=== PATIENT | male | born 1985 | race Hispanic/Latino ===

== ENCOUNTER 2020-07-30 10:54 | Emergency (ER) | payer OTHER ==
[~2020-07-30 10:54] MED LIST: Iopamidol-370 76% 500 ML 1 ML ONE
[2020-07-30] MEDS ORDERED: Ketorolac Tromethamine 30 MG/ML VIAL ONE (11:40)
[2020-07-30 12:02] LABS: #Basophils 0.1 thou/uL (0.0-0.2); #Lymphocytes 0.4 thou/uL (1.20-3.40); #Monocytes 0.2 thou/uL (0.11-0.59); #Neutrophils 5.2 thou/uL (1.40-6.50); %Eosinophils 0.2 % (0.0-10.0); %Monocytes 3.5 % (0.0-10.0); %Neutrophils 88.4 % (42.0-75.0); Hemoglobin 14.8 g/dL (14.0-18.0); Mean Corpuscular HGB CONC 32.2 g/dL (32.0-36.0); Mean Corpuscular Hemoglobin 28.3 pg (27.0-31.0); Mean Corpuscular Volume 87.9 fL (78.0-98.0); Mean Platelet Volume 8.6 fL (7.4-10.4); Platelet Count 107 thou/uL (130-400); Platelet Morphology Comment Appears Decreased; RBC Distribution Width 11.9 % (11.5-14.5); Red Blood Cell (RBC) Count 5.21 mill/uL (4.70-6.10); White Blood Cell (WBC) Count 5.8 thou/uL (4.8-10.8)
[2020-07-30 12:03] LABS: ALT (SGPT) 38 U/L (8-55); AST (SGOT) 39 U/L (5-34); Albumin 3.9 g/dL (3.5-5.0); Alkaline Phosphatase 60 U/L (40-110); Anion Gap 15 mmol/L (10-20); BUN (Urea Nitrogen) 9 mg/dL (8.9-20.6); Bilirubin, Total 0.5 mg/dL (0.2-1.2); Calc. Creatinine Clearance 0 mL/min (70-130); Carbon Dioxide 21 mmol/L (22-29); Chloride 98 mmol/L (98-107); Glucose 135 mg/dL (70-105); Lipase 45 U/L (8-78); Potassium 4.8 mmol/L (3.5-5.1); Protein, Total 7.9 g/dL (6.0-8.3); Sodium 129 mmol/L (136-145)
== END 2020-07-30 15:08 | disposition home or self-care (01) ==
LOC: ERS 10:54
DX: U07.1 COVID-19 (principal); J12.89 Other viral pneumonia; Z79.899 Other long term (current) drug therapy
CPT/HCPCS: 36415; 71045; 71275; 80053; 83690; 84484; 85025; 85379; 93005; J1885

== ENCOUNTER 2020-07-31 00:55 | Inpatient (IN) | payer OTHER ==
[2020-07-31 01:33] LABS: #Lymphocytes 0.5 thou/uL (1.20-3.40); #Monocytes 0.2 thou/uL (0.11-0.59); #Neutrophils 5.2 thou/uL (1.40-6.50); %Basophils 0.3 % (0.0-1.0); %Lymphocytes 8.4 % (21.0-51.0); %Monocytes 3.8 % (0.0-10.0); %Neutrophils 87.5 % (42.0-75.0); Hemoglobin 13.6 g/dL (14.0-18.0); Mean Corpuscular HGB CONC 33.4 g/dL (32.0-36.0); Mean Corpuscular Hemoglobin 29.4 pg (27.0-31.0); Mean Corpuscular Volume 88.2 fL (78.0-98.0); Mean Platelet Volume 7.9 fL (7.4-10.4); Platelet Count 176 thou/uL (130-400); RBC Distribution Width 11.8 % (11.5-14.5); Red Blood Cell (RBC) Count 4.61 mill/uL (4.70-6.10); White Blood Cell (WBC) Count 5.9 thou/uL (4.8-10.8)
[2020-07-31 01:56] LABS: ALT (SGPT) 33 U/L (8-55); AST (SGOT) 30 U/L (5-34); Albumin 3.6 g/dL (3.5-5.0); Alkaline Phosphatase 58 U/L (40-110); Anion Gap 13 mmol/L (10-20); BUN (Urea Nitrogen) 9 mg/dL (8.9-20.6); Bilirubin, Total 0.4 mg/dL (0.2-1.2); Calc. Creatinine Clearance 0 mL/min (70-130); Carbon Dioxide 23 mmol/L (22-29); Chloride 100 mmol/L (98-107); Globulin 3.3 g/dL (2.4-3.5); Glucose 142 mg/dL (70-105); Potassium 3.7 mmol/L (3.5-5.1); Protein, Total 6.9 g/dL (6.0-8.3); Sodium 132 mmol/L (136-145)
[2020-07-31 03:00] VITALS: BMI 35.6
[2020-07-31] MEDS ORDERED: Ondansetron PF 4 MG/2 ML Vial IVP PRN (06:08)
[2020-07-31] MEDS ORDERED: Acetaminophen 325 MG TAB PO PRN (06:08)
[2020-07-31 07:11] LABS: Troponin I Less than 0.010 ng/mL (< 0.028)
[2020-07-31] MEDS: Famotidine 20 MG TAB PO SCH ×2 (08:21→20:13)
[2020-07-31] MEDS: Enoxaparin Sodium 40 MG/0.4 ML SYRINGE SC SCH (08:21)
[2020-07-31] MEDS: Ascorbic Acid 500 mg Chewable Tablet PO SCH (08:21)
[2020-07-31] MEDS: Zinc Sulfate 220 MG CAP PO SCH (08:21)
[2020-07-31] MEDS ORDERED: Dexamethasone 10 MG/ML VIAL SLOW IVP SCH (09:00)
[2020-07-31] MEDS ORDERED: REMDESIVIR (EUA) 200 MG in Sodium Chloride 0.9% 250 ML 210 ML IV SCH (09:00)
[2020-07-31] MEDS ORDERED: Dexamethasone 4 mg/ml Vial SLOW IVP SCH (09:00)
[2020-07-31] MEDS ORDERED: hydrALAZINE 20 MG/ML VIAL SLOW IVP PRN (09:48)
[2020-07-31] MEDS: Ivermectin 3 MG TAB PO SCH (10:15)
[2020-07-31 10:47] LABS: Troponin I Less than 0.010 ng/mL (< 0.028)
[2020-07-31 11:18] LABS: SARS-CoV-2 NAA Rapid Test DETECTED (NotDetected)
[2020-07-31 14:07] LABS: Troponin I Less than 0.010 ng/mL (< 0.028)
[2020-07-31] MEDS: Melatonin 3 MG TAB PO SCH (20:12)
[2020-07-31] MEDS: Cholecalciferol 1,000 UNITS (25 MCG) TAB PO SCH (20:12)
[2020-07-31] MEDS: Dexamethasone 4 mg/ml Vial SLOW IVP SCH (20:13)
[2020-07-31] MEDS: Colchicine 0.6 MG TAB PO SCH (20:16)
[2020-07-31] MEDS ORDERED: Prevnar 13-Val Conj/PF 0.5 ML SYRINGE IM ONE (21:00)
[2020-08-01 07:41] LABS: Anion Gap 15 mmol/L (10-20); BUN (Urea Nitrogen) 13 mg/dL (8.9-20.6); Calc. Creatinine Clearance 226 mL/min (70-130); Calcium 8.2 mg/dL (7.8-10.44); Carbon Dioxide 25 mmol/L (22-29); Chloride 100 mmol/L (98-107); Glucose 178 mg/dL (70-105); Potassium 4.1 mmol/L (3.5-5.1); Sodium 136 mmol/L (136-145)
[2020-08-01 08:12] LABS: Band 6 % (5-11); Eosinophils 1 % (0-10); Hemoglobin 13.7 g/dL (14.0-18.0); Lymphocytes 12 % (21-51); MDiff Complete? YES; Mean Corpuscular HGB CONC 32.7 g/dL (32.0-36.0); Mean Corpuscular Hemoglobin 29.5 pg (27.0-31.0); Mean Platelet Volume 8.7 fL (7.4-10.4); Monocytes 1 % (0-10); Neutrophil 80 % (42-75); Platelet Count 172 thou/uL (130-400); Platelet Morphology Comment Appears Adequate; RBC Morphology Normal; Red Blood Cell (RBC) Count 4.67 mill/uL (4.70-6.10)
[2020-08-01] MEDS: Zinc Sulfate 220 MG CAP PO SCH (08:29)
[2020-08-01] MEDS: Enoxaparin Sodium 40 MG/0.4 ML SYRINGE SC SCH ×2 (08:29→20:45)
[2020-08-01] MEDS: Famotidine 20 MG TAB PO SCH ×2 (08:29→20:44)
[2020-08-01] MEDS: Ascorbic Acid 500 mg Chewable Tablet PO SCH (08:29)
[2020-08-01] MEDS: Ivermectin 3 MG TAB PO SCH (08:29)
[2020-08-01] MEDS: Colchicine 0.6 MG TAB PO SCH ×2 (08:29→20:46)
[2020-08-01] MEDS: Dexamethasone 4 mg/ml Vial SLOW IVP SCH ×2 (08:33→20:46)
[2020-08-01] MEDS: REMDESIVIR (EUA) 100 MG in Sodium Chloride 0.9% 250 ML 230 ML IV SCH (09:08)
[2020-08-01] MEDS: Cholecalciferol 1,000 UNITS (25 MCG) TAB PO SCH (20:44)
[2020-08-01] MEDS: Melatonin 3 MG TAB PO SCH (20:45)
[2020-08-02 06:37] LABS: #Basophils 0.1 thou/uL (0.0-0.2); #Lymphocytes 0.8 thou/uL (1.20-3.40); #Monocytes 0.6 thou/uL (0.11-0.59); %Basophils 0.8 % (0.0-1.0); %Lymphocytes 8.9 % (21.0-51.0); %Monocytes 7.4 % (0.0-10.0); %Neutrophils 82.9 % (42.0-75.0); Mean Corpuscular HGB CONC 32.6 g/dL (32.0-36.0); Mean Corpuscular Hemoglobin 29.3 pg (27.0-31.0); Mean Corpuscular Volume 89.7 fL (78.0-98.0); Mean Platelet Volume 8.1 fL (7.4-10.4); Platelet Count 236 thou/uL (130-400); RBC Distribution Width 11.8 % (11.5-14.5); Red Blood Cell (RBC) Count 4.78 mill/uL (4.70-6.10); White Blood Cell (WBC) Count 8.5 thou/uL (4.8-10.8)
[2020-08-02 06:58] LABS: Anion Gap 14 mmol/L (10-20); BUN (Urea Nitrogen) 13 mg/dL (8.9-20.6); Calc. Creatinine Clearance 245 mL/min (70-130); Calcium 8.1 mg/dL (7.8-10.44); Carbon Dioxide 25 mmol/L (22-29); Chloride 101 mmol/L (98-107); Glucose 174 mg/dL (70-105); Potassium 4.1 mmol/L (3.5-5.1); Sodium 136 mmol/L (136-145)
[2020-08-02] MEDS: Ascorbic Acid 500 mg Chewable Tablet PO SCH (09:50)
[2020-08-02] MEDS: Famotidine 20 MG TAB PO SCH ×2 (09:50→21:08)
[2020-08-02] MEDS: Dexamethasone 4 mg/ml Vial SLOW IVP SCH ×2 (09:51→21:10)
[2020-08-02] MEDS: Colchicine 0.6 MG TAB PO SCH ×2 (09:51→21:09)
[2020-08-02] MEDS: Zinc Sulfate 220 MG CAP PO SCH (09:52)
[2020-08-02] MEDS: Ivermectin 3 MG TAB PO SCH (09:53)
[2020-08-02] MEDS: REMDESIVIR (EUA) 100 MG in Sodium Chloride 0.9% 250 ML 230 ML IV SCH (09:53)
[2020-08-02] MEDS: Enoxaparin Sodium 40 MG/0.4 ML SYRINGE SC SCH ×2 (10:14→21:08)
[2020-08-02] MEDS: Melatonin 3 MG TAB PO SCH (21:09)
[2020-08-02] MEDS: Cholecalciferol 1,000 UNITS (25 MCG) TAB PO SCH (21:09)
[2020-08-03 07:01] LABS: #Monocytes 0.6 thou/uL (0.11-0.59); #Neutrophils 7.3 thou/uL (1.40-6.50); %Basophils 0.4 % (0.0-1.0); %Lymphocytes 11.6 % (21.0-51.0); %Monocytes 6.6 % (0.0-10.0); %Neutrophils 81.4 % (42.0-75.0); Hemoglobin 13.9 g/dL (14.0-18.0); Mean Corpuscular HGB CONC 33.1 g/dL (32.0-36.0); Mean Corpuscular Hemoglobin 29.2 pg (27.0-31.0); Mean Corpuscular Volume 88.2 fL (78.0-98.0); Mean Platelet Volume 7.7 fL (7.4-10.4); Platelet Count 284 thou/uL (130-400); RBC Distribution Width 11.8 % (11.5-14.5); Red Blood Cell (RBC) Count 4.76 mill/uL (4.70-6.10); White Blood Cell (WBC) Count 8.9 thou/uL (4.8-10.8)
[2020-08-03 07:26] LABS: Anion Gap 11 mmol/L (10-20); BUN (Urea Nitrogen) 12 mg/dL (8.9-20.6); Calc. Creatinine Clearance 242 mL/min (70-130); Calcium 8.3 mg/dL (7.8-10.44); Carbon Dioxide 29 mmol/L (22-29); Chloride 101 mmol/L (98-107); Glucose 151 mg/dL (70-105); Potassium 4.3 mmol/L (3.5-5.1); Sodium 137 mmol/L (136-145)
[2020-08-03] MEDS: Enoxaparin Sodium 40 MG/0.4 ML SYRINGE SC SCH (07:58)
[2020-08-03] MEDS: Ascorbic Acid 500 mg Chewable Tablet PO SCH (07:58)
[2020-08-03] MEDS: Famotidine 20 MG TAB PO SCH ×2 (07:58→20:57)
[2020-08-03] MEDS: Colchicine 0.6 MG TAB PO SCH ×2 (07:58→20:57)
[2020-08-03] MEDS: Zinc Sulfate 220 MG CAP PO SCH (07:59)
[2020-08-03] MEDS: REMDESIVIR (EUA) 100 MG in Sodium Chloride 0.9% 250 ML 230 ML IV SCH (07:59)
[2020-08-03] MEDS: Dexamethasone 4 mg/ml Vial SLOW IVP SCH ×2 (07:59→20:57)
[2020-08-03] MEDS: Ivermectin 3 MG TAB PO SCH (08:01)
[2020-08-03] MEDS: Benzonatate 100 MG CAP PO PRN ×2 (10:13→20:57)
[2020-08-03] MEDS: cefTRIAXone\\ROCEPHIN 1 GM in Sodium Chloride 0.9% 100 ML IVPB SCH (10:13)
[2020-08-03] MEDS ORDERED: Azithromycin 500 MG in Sodium Chloride 0.9% 250 ML 250 ML IVPB SCH (10:15)
[2020-08-03] MEDS ORDERED: Doxycycline 100 MG CAP PO SCH ×2 (10:15→21:00)
[2020-08-03] MEDS: Melatonin 3 MG TAB PO SCH (20:57)
[2020-08-03] MEDS: Cholecalciferol 1,000 UNITS (25 MCG) TAB PO SCH (20:57)
[2020-08-04] MEDS: guaiFENesin/Codeine 200 mg/20 mg 10 ml Cup PO PRN ×2 (04:03→08:00)
[2020-08-04] MEDS: Benzonatate 100 MG CAP PO PRN ×2 (05:50→21:26)
[2020-08-04] MEDS: Famotidine 20 MG TAB PO SCH (07:59)
[2020-08-04] MEDS: Zinc Sulfate 220 MG CAP PO SCH (07:59)
[2020-08-04] MEDS: Azithromycin 250 MG TAB PO SCH (07:59)
[2020-08-04] MEDS: Colchicine 0.6 MG TAB PO SCH ×2 (07:59→21:27)
[2020-08-04] MEDS: Ascorbic Acid 500 mg Chewable Tablet PO SCH (07:59)
[2020-08-04] MEDS: Ivermectin 3 MG TAB PO SCH (07:59)
[2020-08-04] MEDS: REMDESIVIR (EUA) 100 MG in Sodium Chloride 0.9% 250 ML 230 ML IV SCH (08:00)
[2020-08-04] MEDS: Enoxaparin Sodium 40 MG/0.4 ML SYRINGE SC SCH (08:00)
[2020-08-04] MEDS: Dexamethasone 4 mg/ml Vial SLOW IVP SCH ×2 (08:00→21:29)
[2020-08-04] MEDS: cefTRIAXone\\ROCEPHIN 1 GM in Sodium Chloride 0.9% 100 ML IVPB SCH (09:39)
[2020-08-04] MEDS: guaiFENesin/Codeine 200 mg/20 mg 10 ml Cup PO SCH ×2 (15:55→21:27)
[2020-08-04] MEDS ORDERED: Gabapentin 100 MG CAP PO SCH (21:00)
[2020-08-04] MEDS: Melatonin 3 MG TAB PO SCH (21:26)
[2020-08-04] MEDS: Cholecalciferol 1,000 UNITS (25 MCG) TAB PO SCH (21:26)
[2020-08-05] MEDS: guaiFENesin/Codeine 200 mg/20 mg 10 ml Cup PO SCH ×4 (01:18→12:02)
[2020-08-05 07:23] VITALS: BP 116/75; TEMP 97.9
[2020-08-05 08:32] LABS: SARS-CoV-2 NAA Rapid Test DETECTED (NotDetected)
[2020-08-05] MEDS: Colchicine 0.6 MG TAB PO SCH (08:34)
[2020-08-05] MEDS: Ivermectin 3 MG TAB PO SCH (08:34)
[2020-08-05] MEDS: Dexamethasone 4 mg/ml Vial SLOW IVP SCH (08:34)
[2020-08-05] MEDS: Benzonatate 100 MG CAP PO PRN (08:34)
[2020-08-05] MEDS: Ascorbic Acid 500 mg Chewable Tablet PO SCH (08:34)
[2020-08-05] MEDS: Zinc Sulfate 220 MG CAP PO SCH (08:35)
[2020-08-05] MEDS: Enoxaparin Sodium 40 MG/0.4 ML SYRINGE SC SCH (08:35)
[2020-08-05] MEDS: Azithromycin 250 MG TAB PO SCH (08:35)
[2020-08-05] MEDS: cefTRIAXone\\ROCEPHIN 1 GM in Sodium Chloride 0.9% 100 ML IVPB SCH (11:00)
== END 2020-08-05 16:35 | disposition home or self-care (01) | DRG 871 ==
LOC: ERS 00:55 → IMCU/EMU 01:46 → T4-B 08-01 03:39
PROVIDERS: ADMIT Internal Medicine; ATTEND Internal Medicine
PROC: XW033E5 Introduction of Remdesivir Anti-infective into Peripheral Vein, Percutaneous Approach, New Technology Group 5 (ICD-10-PCS; principal; 2020-07-31)
PROC: 5A09357 Assistance with Respiratory Ventilation, Less than 24 Consecutive Hours, Continuous Positive Airway Pressure (ICD-10-PCS; 2020-07-31)
PROC: 8E0ZXY6 Isolation (ICD-10-PCS; 2020-07-31)
DX: A41.89 Other specified sepsis (principal); U07.1 COVID-19; J96.01 Acute respiratory failure with hypoxia; J12.82 Pneumonia due to coronavirus disease 2019; I10 Essential (primary) hypertension; I45.10 Unspecified right bundle-branch block; Z79.52 Long term (current) use of systemic steroids; Z79.899 Other long term (current) drug therapy; Z28.21 Immunization not carried out because of patient refusal; Z87.01 Personal history of pneumonia (recurrent)
CPT/HCPCS: 0240U; 36415; 71045; 71275; 80048; 80053; 82728; 83690; 84484; 85025; 85379; 86140; 93005; 94760; 96374; J0456; J0696; J1100; J1650; J1885; J3490; J7050; Q9967; U0002; U0005